=== PATIENT | female | born 1960 | race Caucasian/White ===

== ENCOUNTER 2022-10-26 16:25 | Emergency (ER) | payer BC, OTHER ==
[2022-10-26 16:45] VITALS: BP 152/62; PULSE 78; RESP 17; TEMP 98.3; BMI 34.7
== END 2022-10-26 19:30 | disposition home or self-care (01) ==
LOC: JER 16:25 → JERFT 16:25
DX: T49.2X1A Poisoning by local astringents and local detergents, accidental (unintentional), initial encounter (principal)
CPT/HCPCS: 71046-TC-FY; 99283-25

== ENCOUNTER 2024-02-11 04:14 | Day surgery (SDC) | payer BC, OTHER ==
[2024-02-08 11:57] VITALS: BMI 34.4
[2024-02-11 10:09] VITALS: RESP 20
[2024-02-11] MEDS ORDERED: ONDANSETRON 4 MG/2 ML VIAL ONE (11:42)
[2024-02-11] MEDS ORDERED: MIDAZOLAM HCL 2 MG/2 ML SINGLE DOSE VIAL ONE (11:42)
[2024-02-11 13:13] VITALS: BP 174/63; PULSE 53; TEMP 97.3
== END 2024-02-11 13:41 | disposition home or self-care (01) ==
LOC: JASU-SURG 04:14
PROVIDERS: ATTEND Urology
PROC: 0TF3XZZ Fragmentation in Right Kidney Pelvis, External Approach (ICD-10-PCS; principal; 2024-02-11 12:00)
DX: N20.0 Calculus of kidney (principal)